=== PATIENT | female | born 1985 | race Caucasian/White ===

== ENCOUNTER 2018-10-03 05:43 | Day surgery (SDC) | payer OTHER ==
[2018-10-01 16:57] VITALS: BMI 20.2
--- NOTE | 2018-10-02 18:58 | PREOPHP ---
DATE OF ADMISSION: 10/03/2018 A 33-year-old patient is going to be admitted for diagnostic arthroscopy, examination under general a nesthesia, partial medial and lateral meniscectomy, possible repair, ACL allograft reconstruction, po ssible repair, application of Shepherd dressing. HISTORY OF PRESENT ILLNESS: A 33-year-old patient has been experiencing left knee pain for quite a w hile. Conservative treatment resulted in limited benefit to the patient. The patient has requested surgical intervention. PAST MEDICAL HISTORY: Negative. SOCIAL HISTORY: Used to smoke and stopped. Social drinker. FAMILY HISTORY: Positive for diabetes. MEDICATIONS: 1. Adderall. 2. Lamictal. ALLERGIES: NO HISTORY OF ALLERGY TO MEDICATION. REVIEW OF SYSTEMS: Limited to present illness. PHYSICAL EXAMINATION: SKIN: Within normal limits. ENT: PERRLA. HEAD AND NECK: Normocephalic. Trachea is midline. Bilateral symmetrical carotid pulses. No mass, no bruit, no lymphadenopathy. CARDIOVASCULAR: Normal sinus rhythm. S1, S2 normal. No murmur, no JVD, no peripheral edema. LUNGS: Clear. ABDOMEN: Soft, scaphoid. No organomegaly. No mass. Bowel sounds present. GENITOURINARY AND RECTAL: Not done, not pertinent to this admission. VITAL SIGNS: Height of 5 feet, 5 inches, weighing 125 pounds. MUSCULOSKELETAL: Head and neck unremarkable. Upper extremity was normal with normal neurovascular e xamination. Spine clear. Both lower extremities symmetrical and normal except for the left knee. T here is minimal effusion present. There is tenderness over the posteromedial, tibiofemoral joint estella e. Positive Al test. NEUROLOGIC: Examination of lower extremities has been normal. RADIOLOGIC REPORT: MRI of the left knee indicates bony bruise healing, torn anterior cruciate ligame nt and also torn medial meniscus. DIAGNOSES: Left knee torn medial meniscus, possible lateral meniscus, ACL disruption. Treatment plan, alternatives, risks and benefits were discussed. The patient understands possible co mplications from surgery such as infection, bleeding, nerve damage, vascular damage, possibility of d eep venous thrombosis, pulmonary embolism, hypersensitivity from medication and even . [place] re sult may not be obtained depending on actual findings known or unknown factor or factors. No guarant ee is being made. Formal H and P is supposed to be done by PCP. Dictated By: HIMA SANTIAGO/AYESHA Conf#: [id number] [facility]#: [id number]
[~2018-10-03] VITALS: Ht 165.1 cm; Wt 53.5 kg
[2018-10-03] VITALS (16 sets, daily range): BP systolic 114–139; BP diastolic 66–85; PULSE 76–96; RESP 14–21; Ht 165.1 cm; Wt 53.5 kg
[2018-10-03] MEDS ORDERED: ADDE30 PO (06:49)
[2018-10-03] MEDS ORDERED: LAMO200T3 PO (06:49)
[2018-10-03] MEDS ORDERED: EPINEPHrine 1 MG/ML 30 ML INJ IRR SCH (07:00)
--- NOTE | 2018-10-03 07:14 | PREAC ---
Date/Time of Note Date/Time of Note DATE: 10/03/18 TIME: 07:13 Anesthesia Eval and Record Evaluation Time Pre-Procedure Interview DATE: 10/03/18 TIME: 07:13 Age 33 Sex female NPO: 8 hrs Preoperative diagnosis left knee acl tear Planned procedure left knee acl reconstruction Past Medical History Past Medical History: Includes Psych: Other (adhd) Surgery & Anesthesia Issues No known issue Meds Anticoagulation: No Beta Willa within 24 hr: No Reason Beta Willa not given: Pt. not on B-Willa Reported Medications Lamotrigine* (Lamictal*) 200 Mg Tablet, 200 MG PO DAILY, TAB 10/03/18 Amphet Uto-Mexuiz-Q-Amphet (Adderall) 30 Mg Tablet, 60 MG PO BID, TAB 10/03/18 Current Medications Epinephrine (EPINEPHrine) 30 mg ONCE IRR ; Start 10/03/18 at 07:00; Stop 10/03/18 at 10:00 Meds reviewed: Yes Allergies Coded Allergies: No Known Allergy (Unverified , 10/03/18) Allergies Reviewed: Yes Labs/Studies Labs Reviewed: Reviewed by anesthesiologist test: Negative Pre-procedure Exam Airway: Adequate mouth opening, Adequate thyromental dist Mallampati: Mallampati II Teeth: Normal Lung: Normal Heart: Normal ASA Physical Status ASA physical status: 1 Emergency: None Planned Anesthetic General/MAC: ETT Nerve block: Femoral (left), Sciatic (left) Planned Pain Management Single shot nerve block, Parenteral pain med Pre-operative Attestations Prior to commencing anesthesia and surgery, the patient was re-evaluated, there was verification of: *The patient's identity *The results of appropriate recent lab work and preoperative vital signs *The above evaluation not changing prior to induction *Anesthetic plan, risk benefits, alternative and complications discussed with patient/family; questions answered; patient/family understands, accepts and wishes to proceed. Sterling Joseph M.D. Oct 03, 2018 07:14
[2018-10-03] MEDS ORDERED: POLYMYXIN/BACITRACIN 1L IRRIG ONE (07:19)
[2018-10-03] MEDS ORDERED: ROCURONIUM 50 MG INJ ONE (07:21)
[2018-10-03] MEDS ORDERED: ONDANSETRON 4 MG INJ ONE (07:21)
[2018-10-03] MEDS ORDERED: GLYCOPYRROLATE 0.4 MG INJ ONE ×2 (07:21→10:10)
[2018-10-03] MEDS ORDERED: MIDAZOLAM 1 MG/ML 2 ML INJ ONE ×2 (07:21→07:42)
[2018-10-03] MEDS ORDERED: CEFAZOLIN 1 GM INJ ONE (07:21)
[2018-10-03] MEDS ORDERED: NEOSTIGMINE 3 MG/3 ML SYRINGE ONE ×2 (07:21→10:10)
[2018-10-03] MEDS ORDERED: FENTAnyl 50 MCG/ML VIAL ONE (07:21)
[2018-10-03] MEDS ORDERED: PROPOFOL 20 ML ONE (07:21)
[2018-10-03] MEDS ORDERED: DEXAMETHASONE 4 MG/ML 5 ML INJ ONE (07:22)
[2018-10-03] MEDS ORDERED: ROPIVACAINE 0.5 % 30 ML VIAL ONE (07:22)
[2018-10-03] MEDS ORDERED: DIPHENHYDRAMINE 50 MG INJ IV PRN (07:30)
[2018-10-03] MEDS ORDERED: LABETALOL HCL 20MG INJ IV PRN (07:30)
[2018-10-03] MEDS ORDERED: MIDAZOLAM 1 MG/ML 2 ML INJ IV PRN (07:30)
[2018-10-03] MEDS ORDERED: IPRATROPIUM (NEB) 0.5 MG/2.5 ML AMP HHN PRN (07:30)
[2018-10-03] MEDS ORDERED: hydrALAzine 20 MG INJ IV PRN (07:30)
[2018-10-03] MEDS ORDERED: ONDANSETRON 4 MG INJ IV PRN (07:30)
[2018-10-03] MEDS ORDERED: TRIMETHOBENZAMIDE 100 MG/ML VIAL IM PRN (07:30)
[2018-10-03] MEDS ORDERED: HYDROmorphONE 1 MG/5 ML IV SYRINGE IV PRN ×3 (07:30)
[2018-10-03] MEDS ORDERED: FENTAnyl 50 MCG/ML VIAL IV PRN ×3 (07:30)
[2018-10-03] MEDS ORDERED: ALBUTEROL 0.083% (NEB) 2.5 MG/3 ML AMP HHN PRN (07:30)
[2018-10-03] MEDS ORDERED: EPHEDrine SULFATE 50 MG/5 ML SYG IV PRN (07:30)
[2018-10-03] MEDS ORDERED: MEPERIDINE 25 MG INJ IV PRN (07:30)
[2018-10-03] MEDS ORDERED: OXYCODONE/ACETAMINOPHEN (5/325) TAB PO PRN ×2 (07:30)
[2018-10-03] MEDS ORDERED: morphine SULFATE/PF (10 MG/10 ML) INJ ONE (08:37)
--- NOTE | 2018-10-03 10:25 | NUR ---
Ice pack applied to left knee as ordered.
--- NOTE | 2018-10-03 10:52 | SIPON ---
Date/Time of Note Date/Time of Note DATE: 10/03/18 TIME: 10:46 Operative Report Preoperative Diagnosis Torn menisci, and ACL left knee Postoperative Diagnosis Torn lateral meniscus ,and ACL Left knee Operation/Procedure Performed Diagnostic scope, EUA, lateral menical repair, and ACL repair left knee, application of Shepherd Dressing Surgeon Hima carrizales MD mental health assistant Second Scrub Anesthesia: general Estimated blood loss: minimal Transfusion Required none Specimen none Grafts/Implants none Complications none HIMA CARRIZALES MD Oct 03, 2018 10:52
[2018-10-03] MEDS ORDERED: HYDROCODONE/APAP (5/325) TAB PO PRN ×2 (11:00)
--- NOTE | 2018-10-03 11:08 | PAC ---
Date/Time of Note Date/Time of Note DATE: 10/03/18 TIME: 11:07 Post-Anesthesia Notes Post-Anesthesia Note Last documented vital signs Vital Signs Date Temp Pulse Resp B/P (MAP) Pulse Ox O2 O2 Flow FiO2 Time Delivery Rate 10/03/18 Simple 8.0 10:25 Mask 10/03/18 98.3 94 18 130/83 97 06:45 (99) Activity: WNL Respiratory function: WNL Cardiovascular function: WNL Mental status: Baseline Pain reasonably controlled: Yes Hydration appropriate: Yes Nausea/Vomiting absent: Yes Sterling Joseph M.D. Oct 03, 2018 11:08
--- NOTE | 2018-10-03 13:59 | NUR ---
PT order received for crutch training, patient in bed sleeping. Per RN, patient "not ready yet" reportedly in "a lot of pain" earlier but RN to call PT when patient ready to be seen. To follow up as time permits
--- NOTE | 2018-10-03 15:53 | NUR ---
PT evaluation Therapy day number 1 Evaluation Start Time 15:00 Evaluation End Time 15:45 Evaluation Total Time 45 min Subjective Current complaint of pain Pain Scale FACES Pain Intensity 10 (0-10) Patient Stated Goal for Pain Relief 0 (0-10) Pain Level Comment pt premedicated, pain throughout Pre Treatment Vital Signs Stable Yes Exercise Assessment Label Left Lower Extremity Exercise Type Active ROM Additional Exercise Comments educated on active LAQ at EOB Supine to Sit Modified Independent Transfer Sit to Stand Ability Supervised Bed Mobility Sit to Supine Modified Independent Bed Transfer Ability Supervised Chair Transfer Ability Supervised Additional Mobility Comments supervised with crutches for hand placement Gait Assist Levels Moderate Assist Assistive Devices Axillary Crutches Ambulation Distance 10 feet Additional Gait Comments maintained NWB, poor tolerance, high pain, patient refused further Weight Bearing Assessment Label Left Lower Extremity Weight Bearing Status Non Weight Bearing Static Sitting Balance Fair Dynamic Sitting Balance Fair Standing Static Balance Fair Dynamic Standing Balance Poor Safety Judgement Fair Activity Tolerance Poor Additional Equipment Present hinged knee brace Post Treatment Pain Intensity 10 0-10 Additional Post Treatment Comment See note Total Minutes 45 Total Units 3 PT Technical Record Comment 33 yo s/p L knee ACL reconstruction, partial medial and lateral menisectomy 10/03/18 PMH: ADHD Precaution: NWB LLE PLOF Patient independent previously with no AD, lives with significant other in [facility] with "a couple" stairs to enter S: Patient in bed, anxious with significant other at bedside, agreeable to PT evaluation. Patient cleared for activity per RN O: PT evaluation completed, patient back in bed, following activity with needs met and RN present. Spoke to RN regarding concerns for therapy, PT plan of care. Reports of significant pain throughout, no dizziness, or shortness of breath with activity. Per MD note "ROM exercises to knee" with no clarification on brace use. patient instructed on heel slides and LAQ and maintain brace use at all times until clarified. Following limited crutch training, patient refused further mobility stating "i don't need to learn crutches" A: Patient anxious throughout instruction with poor understanding of ROM exercises however family able to assist and receptive. Patient required frequent redirection to task and limited safety awareness with crutch training. Patient able to maintain weight bearing precaution throughout. Significant other able to assist at discharge and understanding of safety precautions. Patient required max cues for sequencing and mod A to maintain upright posture. Pt could benefit from skilled inpatient PT inhouse to improve safety, balance, and functional mobility P: progress crutch training and stairs as able. Recommendation: home with assistance, HHPT when medically cleared by
--- NOTE | 2018-10-03 18:08 | NUR ---
1200-RESTING QUIETLY WITH EYES CLOSED NO DISTRESS NOTED.BOYFRIEND AT BEDSIDE.
--- NOTE | 2018-10-03 18:11 | NUR ---
1300-CONT. TO SLEEP WITH NO DISTRESS NOTED.
--- NOTE | 2018-10-03 18:14 | NUR ---
1515-UP WITH CRUTCHES & PT.AMB. A SHORT DISTANCE,VERY ANXIOUS ABOUT LEG EXERCISES.
--- NOTE | 2018-10-03 18:16 | NUR ---
1529- DR CARRIZALES NOTIFIED REGARDING LEG EXERCISES.STATES SHE CAN BEND THE LEG FAR THE LEG BRACE WILL LET HER & KEEP LEG BRACE ON AT ALL TIMES.GOOD MOVEMENT & SENS OF TOES.
--- NOTE | 2018-10-04 07:19 | OPR ---
DATE OF OPERATION: 10/03/2018 PREOPERATIVE DIAGNOSIS: Torn menisci and torn ACL, left knee. POSTOPERATIVE DIAGNOSIS: Torn lateral meniscus, plica band syndrome and a torn ACL from proximal att achment, left knee. OPERATION PERFORMED: Examination under general anesthesia, diagnostic arthroscopy, lateral meniscal repair and repair of the ACL. ANESTHESIA: General. ANESTHESIOLOGIST: Dr. Joseph. FRONT DESK ASSISTANT: Second scrub. BLEEDING: Minimal. COMPLICATIONS: None. DESCRIPTION OF PROCEDURE: Patient was transferred to the operating room and placed in the supi ne position. The knee block was given by Dr. Joseph. General anesthesia was induced and a couple grams of Ancef was given IV. Left knee was examined, . Then after regular prep and draping, landmarks were marked through 2 anterior portals. A medial and lateral to parapatellar tendon. Operative arthroscopy was commenced. Examination of suprapatellar p ouch indicated thick fibrotic medial plica band which was released. Medial gutter was clear of loose bodies. Patellofemoral surface looked good. Going to medial compartment, the articular surface was nice and smooth and the meniscus was intact and showed no peripheral tear. ACL was detached proxima l part, femoral attachment. We went to the lateral compartment, there was early grade III chondromal acia of the tibial surface, articulating with the posterior horn of the lateral meniscus and shows a peripheral stretching of the meniscus and stability of the to the middle of the joint. Therefo re, using FasT-Fix and stabilized the meniscus. The reminder of the lateral meniscus, medial plate a nd is relatively normal. Went into intercondylar notch, the femoral attachment of the ACL was identified and the ACL was sligh tly scarified with the PCL, which was released. Then, we used the through pass and #2 FiberWire sutu res, then used guide to locate the anatomical attachment of the ACL and around the attachment was sli ghtly abraded. We drove 4.5 over the use of 4.5 and delivered the sutures through the attachme nt and reapproximated the ACL at its anatomical attachment on the bleeding surface. Excess sutures w ere removed. Al was negative. Knee was evacuated from with copious amount of saline irrigation. Portal was closed with stap les, 10 mg Duramorph mixed with 10 mL of injectable saline was injected into the knee. Sterile Shepherd dressing was applied and controlled. Postop range of motion of the wrist was applied and it was set from 0 to 90. General anesthesia was stopped. Patient was taken to recovery room in good and stabl e condition. Dictated By: HIMA SANTIAGO/AYESHA Conf#: [id number] DID#: [id number]
== END 2018-10-03 15:46 | disposition home or self-care (01) ==
LOC: SDS 05:43
PROVIDERS: ATTEND Internal Medicine Endocrinology, Diabetes & Metabolism
DX: S83.512D Sprain of anterior cruciate ligament of left knee, subsequent encounter (principal); M23.252 Derangement of posterior horn of lateral meniscus due to old tear or injury, left knee; X58.XXXD Exposure to other specified factors, subsequent encounter; E11.9 Type 2 diabetes mellitus without complications
CPT/HCPCS: 29881; 29888; 97162; J0171; J0690; J1100; J1170; J2175; J2250; J2274; J2405; J2795; J3010; Z7610; C1713; J2710

== ENCOUNTER 2019-03-13 05:29 | Day surgery (SDC) | payer OTHER ==
[~2019-03-13] VITALS: Ht 165.1 cm; Wt 58.2 kg
[2019-03-13] VITALS (21 sets, daily range): BP systolic 104–150; BP diastolic 65–85; PULSE 74–102; RESP 12–34; Ht 165.1 cm; Wt 58.2 kg
[~2019-03-13 05:29] MED LIST: ADDE30 PO; LAMO200T3 PO
--- NOTE | 2019-03-13 06:49 | PREOPHP ---
DATE OF ADMISSION: 03/13/2019 HISTORY OF PRESENT ILLNESS: A 33-year-old patient who is going to be admitted for diagnostic arthros copy, examination under general anesthesia, SLAP Bankart cuff repair of left shoulder. This patient has been experiencing shoulder pain for quite a while. Conservative treatment resulted in limited benefit to the patient, and the patient has requested surgical intervention. PAST MEDICAL HISTORY: None. SOCIAL HISTORY: The patient used to smoke previously and stopped. The patient is a nondrinker. FAMILY HISTORY: Positive for diabetes. MEDICATIONS: 1. Adderall. 2. Lamictal. NO HISTORY OF ALLERGY TO MEDICATION. REVIEW OF SYSTEMS: Limited to present illness. PHYSICAL EXAMINATION: SKIN: Within normal limits. ENT: PERRLA. HEAD AND NECK: Normocephalic. Trachea midline. Bilateral symmetrical carotid pulses. No mass, no bruit, no lymphadenopathy. CARDIOVASCULAR: Normal sinus rhythm. S1, S2 normal. No murmur, no JVD, no peripheral edema. LUNGS: Clear. ABDOMEN: Soft, scaphoid. No organomegaly. No mass. Bowel sounds present. GENITOURINARY AND RECTAL: Not done, not pertinent to this admission. MUSCULOSKELETAL: Head and neck are unremarkable. Right shoulder shows no muscle atrophy. Range of motion was close to normal. However, there is positive sign. Tenderness over the anterior gle nohumeral joint and subacromial space. Positive anterior drawer test, questionable impingement, posi tive [place] test. Spine clear. Both lower extremities symmetrical and normal. Scar from previous surgery on the left knee. MRI of the shoulder indicates sequelae of the prior humeral eversion glenohumeral ligament with scarring and attenuation of the glenohumeral ligament exiting pouch, especially in the humeral attac hment. Scarring of the anterior and anterior glenohumeral ligament. Small tear of inferior labrum, of the superior and posterior labrum and partial detachment of t he superior labrum. DIAGNOSES: 1. SLAP lesion, Bankart lesion of the left shoulder. 2. Possible rotator cuff tear. Treatment plan, alternatives, risks and benefits discussed. The patient understands possible complic ations such as infection, bleeding, nerve damage, vascular damage, possibility of deep venous thrombo sis, pulmonary embolism, hypersensitivity from medication, and even . [place] result may be obtai jose c depending on actual finding or findings known or unknown factor or factors. No guarantee is bein g made. Formal H and P is supposed to be done by PCP. Dictated By: HIMA SANTIAGO/AYESHA Conf#: [id number] DID#: [id number]
[2019-03-13] MEDS ORDERED: EPINEPHrine 1 MG/ML 30 ML INJ ZFS ONE (07:00)
[2019-03-13] MEDS ORDERED: morphine SULFATE/PF (10 MG/10 ML) INJ ONE (07:11)
--- NOTE | 2019-03-13 07:37 | PREAC ---
Date/Time of Note Date/Time of Note DATE: 03/13/19 TIME: 07:36 Anesthesia Eval and Record Evaluation Time Pre-Procedure Interview DATE: 03/13/19 TIME: 07:36 Age 33 Sex female NPO: 8 hrs Preoperative diagnosis shoulder pain Planned procedure shoulder scope Past Medical History Past Medical History: Includes Psych: Depression, Other (addhd) Surgery & Anesthesia Issues No known issue Meds Anticoagulation: No Beta Willa within 24 hr: No Reason Beta Willa not given: Pt. not on B-Willa Reported Medications Lamotrigine* (Lamictal*) 200 Mg Tablet, 200 MG PO DAILY, TAB 10/03/18 Amphet Zxc-Nqmilw-M-Amphet (Adderall) 30 Mg Tablet, 60 MG PO BID, TAB 10/03/18 Meds reviewed: Yes Allergies Coded Allergies: No Known Allergy (Unverified , 03/13/19) Allergies Reviewed: Yes Labs/Studies Labs Reviewed: Reviewed by anesthesiologist test: Negative Pre-procedure Exam Last vitals Vital Signs Date Temp Pulse Resp B/P (MAP) Pulse Ox O2 O2 Flow FiO2 Time Delivery Rate 03/13/19 98.2 74 18 106/78 100 Room Air 06:27 (87) Airway: Adequate mouth opening Mallampati: Mallampati I Teeth: Normal Lung: Normal Heart: Normal Anticipated Difficutly with IV: Anticipate Difficult IV Access ASA Physical Status ASA physical status: 2 Emergency: None Planned Anesthetic General/MAC: ETT Pre-operative Attestations Prior to commencing anesthesia and surgery, the patient was re-evaluated, there was verification of: *The patient's identity *The results of appropriate recent lab work and preoperative vital signs *The above evaluation not changing prior to induction *Anesthetic plan, risk benefits, alternative and complications discussed with patient/family; questions answered; patient/family understands, accepts and wishes to proceed. TERESITA MCCLELLAN MD Mar 13, 2019 07:37
[2019-03-13] MEDS ORDERED: HYDROmorphONE 2 MG/ML SYG ONE (07:40)
[2019-03-13] MEDS ORDERED: CEFAZOLIN 1 GM INJ ONE (07:40)
[2019-03-13] MEDS ORDERED: MIDAZOLAM 1 MG/ML 2 ML INJ ONE ×2 (08:16→10:18)
[2019-03-13] MEDS ORDERED: ROCURONIUM 50 MG INJ ONE (08:17)
[2019-03-13] MEDS ORDERED: PROPOFOL 20 ML ONE (08:17)
[2019-03-13] MEDS ORDERED: ONDANSETRON 4 MG INJ ONE (08:17)
[2019-03-13] MEDS ORDERED: SUGAMMADEX SODIUM 200 MG/2 ML VIAL IV ONE (08:17)
[2019-03-13] MEDS ORDERED: hydrALAzine 20 MG INJ IV PRN (08:30)
[2019-03-13] MEDS ORDERED: MEPERIDINE 25 MG INJ IV PRN (08:30)
[2019-03-13] MEDS ORDERED: HYDROmorphONE 1 MG/5 ML IV SYRINGE IV PRN (08:30)
[2019-03-13] MEDS ORDERED: ONDANSETRON 4 MG INJ IV PRN (08:30)
[2019-03-13] MEDS ORDERED: KETOROLAC 15 MG INJ IV PRN (08:30)
[2019-03-13] MEDS ORDERED: LABETALOL HCL 20MG INJ IV PRN (08:30)
[2019-03-13] MEDS ORDERED: EPINEPHrine 1 MG/ML 30 ML INJ IRR ONE (08:53)
--- NOTE | 2019-03-13 10:03 | SIPON ---
Date/Time of Note Date/Time of Note DATE: 03/13/19 TIME: 09:59 Operative Report Preoperative Diagnosis Left shoulder Cuff tear, SLAP lesion, and Bankart lesion Postoperative Diagnosis The same Operation/Procedure Performed Diagnostic scope, EUA, Cuff repair. SLAP repair, and Bankart repair Surgeon Hima Nielson MD social human services assistants Second physics technician Anesthesia: general Estimated blood loss: minimal Transfusion Required none Specimen None Grafts/Implants none Complications none HIMA NIELSON MD Mar 13, 2019 10:03
[2019-03-13] MEDS: HYDROmorphONE 1 MG/5 ML IV SYRINGE IV PRN ×3 (10:15→10:27)
--- NOTE | 2019-03-13 10:16 | PAC ---
Date/Time of Note Date/Time of Note DATE: 03/13/19 TIME: 10:16 Post-Anesthesia Notes Post-Anesthesia Note Last documented vital signs Vital Signs Date Temp Pulse Resp B/P (MAP) Pulse Ox O2 O2 Flow FiO2 Time Delivery Rate 03/13/19 98.2 74 18 106/78 100 Room Air 06:27 (87) Activity: WNL Respiratory function: WNL Cardiovascular function: WNL Mental status: Baseline Pain reasonably controlled: Yes Hydration appropriate: Yes Nausea/Vomiting absent: Yes TERESITA MCCLELLAN MD Mar 13, 2019 10:16
[2019-03-13] MEDS ORDERED: MIDAZOLAM 1 MG/ML 2 ML INJ IV ONE (10:30)
--- NOTE | 2019-03-13 12:32 | OPR ---
DATE OF OPERATION: PREOPERATIVE DIAGNOSES: 1. Left shoulder rotator cuff tear. 2. Superior labrum, anterior to posterior lesion. 3. Bankart lesion. POSTOPERATIVE DIAGNOSES: 1. Left shoulder rotator cuff tear. 2. Superior labrum, anterior to posterior lesion. 3. Bankart lesion. OPERATION PERFORMED: Diagnostic arthroscopy, examination under general anesthesia, rotator cuff repa ir, SLAP repair, Bankart repair, left shoulder. ANESTHESIA: General. ANESTHESIOLOGIST: Dipak Rowe MD. BLEEDING: Minimal. COMPLICATIONS: None. OPERATIVE PROCEDURE: The patient was transferred to the operating room and placed on the table in long pine position. General endotracheal anesthesia was induced. Two grams of Ancef was given IV. The p atient was put on right decubitus position. Axillary roll applied. Bony areas were padded. Beanbag was deflated. Neck was flexed left laterally to prevent brachial plexus pull during the procedure. During this procedure, we used Arthrex shoulder gonsalez, a total of 10 pounds in subacromial space, t otal of 10 pounds in glenohumeral joint. After regular prep and draping, landmarks were marked to th e posterior portal glenohumeral joint was entered. Anterolateral 8.25 cannula was established. Exam ination under general anesthesia indicated almost 50% anterior instability of the humeral head on the glenoid. There was andrae disruption of the subscapularis superior fibers. There was a type 2 SLAP lesion, almost type 3. The anterior labrum was frayed and damaged, possible lateral 4 superior separ ation from the anterior glenoid rim. Therefore, we trimmed all the fraying of the superior and poste rior ligament and also the entire anterior labrum. We used a SutureLasso FiberStick to repair the long bscapularis, bringing fibers to the general attachment bleeding surface. Also, then we used SutureLa sso FiberStick to summarize the almost type 3 SLAP lesion and the bleeding margins. There was redund maegan of the capsule and inferior glenohumeral ligament was pulled up and incorporated into the rn embedded ior anterior labrum and present stabilized with a SutureLasso and PushLock ____ bleeding in between _ ___. Excess sutures were cut in each stage. Shoulder joint were cleared from debris using copious n ormal saline irrigation. Portal was closed with skin matteo. A 10 mg Duramorph mixed with 10 mL of injectable saline was injected into the shoulder joint and we did not establish a lateral portal to go into subacromial space since supraspinatus, infraspinatus, and teres minor were nicely attached. The bicep tendon ____ type 2 close to type 3 SLAP lesion was intact into bicipital groove. Sterile dressing was applied. Shoulder immobilizer was placed on. General anesthesia was stopped. The patient was taken to recovery room in good and stable condition. Dictated By: HIMA SANTIAGO/AYESHA Conf#: [id number] DID#: [id number]
== END 2019-03-13 13:35 | disposition home or self-care (01) ==
LOC: SDS 05:29
PROVIDERS: ATTEND Internal Medicine Endocrinology, Diabetes & Metabolism
DX: S43.432D Superior glenoid labrum lesion of left shoulder, subsequent encounter (principal); X58.XXXD Exposure to other specified factors, subsequent encounter; M75.102 Unspecified rotator cuff tear or rupture of left shoulder, not specified as traumatic
CPT/HCPCS: 29807; 29827; 84703; C1713; J0171; J1170; J1885; J2175; J2250; J2274; J2405; Z7512; Z7610; J0690